=== PATIENT | male | born 1960 | race Asian ===

== ENCOUNTER 2016-06-13 11:01 | Emergency (ER) | payer MEDICAID ==
[~2016-06-13] VITALS: Ht 180.3 cm; Wt 95.3 kg
[2016-06-13 11:03] VITALS: BP 163/106
--- NOTE | 2016-06-13 11:08 | NUR ---
Patient ambulated to bed 05.
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
--- NOTE | 2016-06-13 11:15 | NUR ---
Dr. Dejesus evaluating patient at bedside.
--- NOTE | 2016-06-13 11:24 | NUR ---
Patient going to CT via [facility].
--- NOTE | 2016-06-13 11:41 | NUR ---
Patient back from CT via [facility].
[2016-06-13 12:02] LABS: BASOPHILS # (AUTO) 0.1 K/uL (0.00-0.22); EOSINOPHILS # (AUTO) 0.1 K/uL (0-0.4); EOSINOPHILS % (AUTO) 1.1 % (0.0-4.0); HEMATOCRIT 45.7 % (36-52); HEMOGLOBIN 14.7 g/dL (12.0-18.0); LYMPHOCYTES # (AUTO) 2.1 K/uL (2.0-11.5); LYMPHOCYTES % (AUTO) 15.4 % (20.5-51.1); MEAN CORPUSCULAR HEMOGLOBIN 29 pg (27-31); MEAN CORPUSCULAR HGB CONC 32 g/dL (33-37); MEAN CORPUSCULAR VOLUME 91 fL (80-94); MONOCYTES # (AUTO) 0.6 K/uL (0.8-1.0); MONOCYTES % (AUTO) 4.2 % (1.7-9.3); NEUTROPHILS # (AUTO) 10.7 K/uL (1.8-7.7); NEUTROPHILS % (AUTO) 78.3 % (42.2-75.2); PLATELET COUNT (AUTO) 254 K/uL (140-450); RED CELL DISTRIBUTION WIDTH 12.7 % (11.6-13.7); WHITE BLOOD COUNT (AUTO) 13.6 K/uL (4.8-10.8)
[2016-06-13 12:19] LABS: ANION GAP 13.3 (8-16); CALCIUM 8.7 mg/dL (8.5-10.1); CARBON DIOXIDE 26.3 mmol/L (21-32); CREATININE 1.3 mg/dL (0.6-1.3); POTASSIUM 3.6 mmol/L (3.5-5.1)
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
[2016-06-13 12:20] LABS: INR 1.1 (0.8-1.2); PARTIAL THROMBOPLASTIN TIME 21.4 secs (22-35.6); PROTHROMBIN TIME 10.1 secs (10.8-13.4)
[2016-06-13] MEDS ORDERED: ONDANSETRON 4 MG ODT PO ONE (12:35)
[2016-06-13 14:07] VITALS: BP 160/99
--- NOTE | 2016-06-13 14:08 | NUR ---
Patient discharged with v/s stable. Written and verbal after care instructions given and explained. Patient alert, oriented and verbalized understanding of instructions. Ambulatory with steady gait. All questions addressed prior to discharge. ID band removed. Patient advised to follow up with PMD. Rx of NORCO AND ZOFRAN given. Patient educated on indication of medication including possible reaction and side effects. Opportunity to ask questions provided and answered. PT. STATES HIS SISTER IS DRIVING HIM HOME
== END 2016-06-13 14:05 | disposition home or self-care (01) ==
LOC: MED 11:01
DX: S06.0X0A Concussion without loss of consciousness, initial encounter (principal); S01.21XA Laceration without foreign body of nose, initial encounter; I10 Essential (primary) hypertension; W01.0XXA Fall on same level from slipping, tripping and stumbling without subsequent striking against object, initial encounter; Y93.89 Activity, other specified; Y92.89 Other specified places as the place of occurrence of the external cause; Y99.8 Other external cause status
CPT/HCPCS: 36415; 70450; 70486; 72125; 80048; 85025; 85610; 85730; 90471; 90715; 99285; S0119